=== PATIENT | female | born 1990 | race Caucasian/White ===

== ENCOUNTER 2016-10-11 10:17 | Emergency (ER) | payer OTHER ==
[2016-10-11 10:33] LABS: COLOR ORANGE (YELLOW)
[2016-10-11 10:34] LABS: CLARITY HAZY (CLEAR)
[2016-10-11 10:35] LABS: BACTERIA TRACE
== END 2016-10-11 11:34 | disposition home or self-care (01) ==
LOC: FER 10:17
PROVIDERS: Internal Medicine
DX: N30.00 Acute cystitis without hematuria (principal); Z87.440 Personal history of urinary (tract) infections; Z88.2 Allergy status to sulfonamides
CPT/HCPCS: 81001; 99283

== ENCOUNTER 2016-10-30 16:35 | Emergency (ER) | payer OTHER ==
[2016-10-30 17:27] LABS: BILIRUBIN NEGATIVE (NEGATIVE); BLOOD TRACE-INTACT Ery/uL (NEGATIVE); CLARITY CLEAR (CLEAR); COLOR YELLOW (YELLOW); GLUCOSE (U) TRACE mg/dL (NORMAL); KETONE (U) TRACE mg/dL (NEGATIVE); LEUKOCYTES TRACE Leu/uL (NEGATIVE); NITRITE POSITIVE (NEGATIVE); PROTEIN 1+ mg/dL (NEGATIVE); pH 6.5 (5.0-9.0)
[2016-10-30 17:36] LABS: BACTERIA TRACE; MUCOUS TRACE
== END 2016-10-30 19:52 | disposition home or self-care (01) ==
LOC: FER 16:35
PROVIDERS: Emergency Medicine
DX: N39.0 Urinary tract infection, site not specified (principal); Z87.448 Personal history of other diseases of urinary system; Z79.899 Other long term (current) drug therapy
CPT/HCPCS: 81001